=== PATIENT | male | born 1965 | race Caucasian/White ===

== ENCOUNTER 2021-12-07 10:18 | Emergency (ER) | payer BC, SELFPAY ==
[2021-12-07 10:38] VITALS: BP 147/73; PULSE 80; RESP 18; TEMP 36.4; O2SAT 98
--- NOTE | 2021-12-07 11:08 | ED.SKABFB ---
HPI - Skin/Abscess/Foreign Bdy General Chief complaint: Skin/Abscess/Foreign Body Stated complaint: wasp sting Time Seen by Provider: 12/07/21 10:59 Source: patient Mode of arrival: ambulatory Limitations: no limitations History of Present Illness HPI narrative: Patient presents today complaining of wasp sting to right lower abdomen 2 days ago. Reports the redness is getting slightly worse, but denies any pain. Reports some very mild itching. He has been applying some topical Benadryl with some relief. Related Data Allergies Allergy/AdvReac Type Severity Reaction Status Date / Time No Known Allergies Allergy Verified 12/07/21 10:45 Review of Systems Review of Systems: CONSTITUTIONAL: Denies body aches, fever, chills, or sweats. EYES: Denies visual changes, redness, or discharge. ENT: Denies rhinorrhea, congestion, sore throat, or otalgia. CARDIOVASCULAR: Denies chest pain, palpitations, or edema. RESPIRATORY: Denies cough or dyspnea. GASTROINTESTINAL: Denies abdominal pain, nausea, vomiting, or diarrhea. GENITOURINARY: Denies dysuria or hematuria. SKIN: + Wasp sting to right abdomen MUSCULOSKELETAL: Denies back pain, joint pain, or myalgia. NEUROLOGIC: Denies headache, numbness, tingling, or weakness. PSYCH: Denies depression or anxiety. [facility] Past Medical History Medical History Abnormal fasting glucose Fasting glucose 112 with hemoglobin A1c 6.0 on 11/16/2021. Acute non-recurrent maxillary sinusitis Anxiety Anxiety Benign colon polyp Benign polyp [address] Adan. BMI 34.0-34.9,adult Class 1 obesity with body mass index (BMI) of 32.0 to 32.9 in adult Encounter for wellness examination in adult Family history of malignant neoplasm of colon in relative diagnosed when younger than 50 years of age History of palpitations Insomnia Mixed hyperlipidemia Total cholesterol 186 with triglycerides 132, HDL 57 and LDL 106 on 11/16/2021. Obesity (BMI 30.0-34.9) Obstructive sleep apnea on CPAP Primary hypertension Prostate cancer screening PSA 1.64 on 11/16/2021. Protein in urine (11/19/21) trace protein on 11/16/2021. Seasonal allergic rhinitis Tobacco abuse Vitamin B12 deficiency anemia B12 normal at 787 with hemoglobin 13.9 on 11/16/2021. Surgical History Surgical History History of bilateral knee replacement History of knee replacement (~2011) Family History Family History Father Cancer Sibling Cancer Social History Social History Social History: pt smoke half pack a day Smoking status: Current some day smoker Tobacco type: cigarettes Alcohol intake: current Drinks per week: 6 Alcohol use details: beer Substance use: never Substance use type: does not use Comments At time of signature, I have reviewed and agree with nursing past medical, surgical, social and family history unless otherwise noted. Please see nursing chart for further information. There is no relevant family history pertinent to the presenting complaint Exam Narrative: GENERAL: Well-appearing, well-nourished, and in no acute distress. HEAD: Normocephalic, atraumatic. EYES: EOMI. No redness or drainage. Conjunctivae normal. ENT: Mucous membranes pink and moist. NECK: Normal AROM. CHEST: No respiratory distress. EXTREMITIES: Normal range of motion. No edema. SKIN: Warm, dry. Capillary refill normal. Normal skin turgor. 11 x 13 cm area of erythema to the right lower quadrant with area around the lower edge that is slightly edematous. 3 mm round scabbed puncture wound in the upper portion. Nontender. No induration. No fluctuance. NEURO: No focal deficits. Alert and oriented x3. Gait steady. PSYCH: Normal affect. No signs of depression or anxiety.
== END 2021-12-07 11:09 | disposition home or self-care (01) ==
PROVIDERS: Emergency Provider Nurse Practitioner; PCP Family Medicine
DX: T63.461A Toxic effect of venom of wasps, accidental (unintentional), initial encounter (principal); F17.210 Nicotine dependence, cigarettes, uncomplicated; E78.2 Mixed hyperlipidemia; G47.33 Obstructive sleep apnea (adult) (pediatric); I10 Essential (primary) hypertension; Z96.653 Presence of artificial knee joint, bilateral; E66.9 Obesity, unspecified; Z68.36 Body mass index [BMI] 36.0-36.9, adult
CPT/HCPCS: 99213; G0463

== ENCOUNTER 2022-08-13 02:48 | Day surgery (SDC) | payer BC, SELFPAY ==
[2022-08-05 16:16] VITALS: BMI 32.9
[2022-08-13 06:15] VITALS: BP 141/99; PULSE 73; RESP 18; TEMP 36.4; O2SAT 100; BMI 32.8
[2022-08-13] MEDS: LACTATED RINGERS 1,000 ML 150 ML IV CONT (06:42)
--- NOTE | 2022-08-13 07:17 | WPDANESEPPF ---
Anes - Initial Pre Proc Eval Procedure: Operation Date: 08/13/22 07:30 Proposed Procedures p Screening Colonoscopy - J Luis Adan MD Date/Time: 08/13/22 07:17 Surgeon: J Luis Adan MD Pre Op Diagnosis: Hx of colon polyps, Fam hx of colon cancer Patient Data Age: 56 Gender: M Height: 1.8 m Weight: 106.9 kg Last Vital Signs Temp 97.5 F L 08/13/22 06:15 Pulse 73 08/13/22 06:15 Resp 18 08/13/22 06:15 BP 141/99 H 08/13/22 06:15 Pulse Ox 100 08/13/22 06:15 O2 Del Method Room Air 08/13/22 06:15 Allergies Allergy/AdvReac Type Severity Reaction Status Date / Time No Known Allergies Allergy Verified 08/05/22 16:18 Home Medications Medication Instructions Recorded Confirmed Type atorvastatin 40 mg tablet 40 mg PO DAILY #90 tabs 04/20/22 08/05/22 Rx irbesartan 150 mg tablet 150 mg PO DAILY #90 tabs 04/20/22 08/05/22 Rx metoprolol succinate 50 mg 50 mg PO DAILY #90 tabs 04/20/22 08/05/22 Rx tablet,extended release 24 hr blood sugar diagnostic (True #50 ea 05/10/22 05/26/22 Rx Metrix Glucose Test Strip) blood-glucose meter (True Metrix #1 ea 05/10/22 05/26/22 Rx Glucose Meter) sodium,potassium,mag sulfates 17.5 See Rx Instructions PO .COMPLEX 07/06/22 08/05/22 Rx gram-3.13 gram-1.6 gram oral soln #354 mL (Suprep Bowel Prep Kit) Adults Multivitamin 1 tab-cap PO DAILY 08/05/22 08/05/22 History cyanocobalamin (vitamin B-12) 1,000 mcg PO DAILY 08/05/22 08/05/22 History 1,000 mcg tablet,extended release (Vitamin B-12 ER) Patient hx anesthesia problems: none Family hx anesthesia problems: none Results Review: All pre-operative results and documents have been reviewed as part of the pre-operative evaluation. [facility] Past Medical History Medical History (Updated 05/26/22 @ 13:23 by Conor Singh MD) Abnormal fasting glucose Fasting glucose 112 with hemoglobin A1c 6.0 on 11/16/2021. glucose 96 with hemoglobin A1c 6.1 on 05/07/2022. Acute bronchitis Acute non-recurrent maxillary sinusitis Anxiety Anxiety Benign colon polyp Benign polyp [address] Adan. BMI 32.0-32.9,adult BMI 34.0-34.9,adult Class 1 obesity with body mass index (BMI) of 32.0 to 32.9 in adult Encounter for wellness examination in adult Family history of malignant neoplasm of colon in relative diagnosed when younger than 50 years of age Ganglion cyst of finger of right hand (~2021) extensor surface distal phalanx right little finger 5 mm History of palpitations Insomnia Mixed hyperlipidemia Total cholesterol 186 with triglycerides 132, HDL 57 and LDL 106 on 11/16/2021. Cholesterol 191, triglycerides 107, HDL 62, LDL 110 on 05/07/2022. Obesity (BMI 30.0-34.9) Obstructive sleep apnea on CPAP Primary hypertension Prostate cancer screening PSA 1.64 on 11/16/2021. Protein in urine (11/19/21) trace protein on 11/16/2021. Seasonal allergic rhinitis Tobacco abuse Vitamin B12 deficiency anemia B12 normal at 787 with hemoglobin 13.9 on 11/16/2021. Wart Surgical History Surgical History History of bilateral knee replacement History of knee replacement (~2011) Family History Family History Father Cancer Sibling Cancer Social History Social History (Updated 05/26/22 @ 09:54 by Francie Carbajal MA) Social History: pt smoke half pack a day Smoking packs per day: 1 Smoking cigarettes per day: 20.0 Years smoked: 30 Smoking pack-years: 30.00 Smoking status: Current every day smoker Tobacco type: cigarettes Additional smoking assessment comments: CUT WAY BACK DOWN TO 7/DAY Alcohol intake: current Drinks per week: 6 Alcohol use details: BEERS Substance use: never Substance use type: does not use Lack of Transportation: No Lack of Food: Sometimes True Current Housing: I Have Housing Concerned About Future Housing
[2022-08-13 07:38] VITALS: BP 112/57; PULSE 91; RESP 16; O2SAT 96
--- NOTE | 2022-08-13 07:39 | PM.HPGS ---
History of Present Illness History of Present Illness Consent: Risks, benefits, and alternatives have been discussed and questions answered. Patient agrees to proceed with procedure. Chief complaint: Hx of colon polyps, Fam hx of colon cancer Narrative: Jacobo Estrella is a 56 year old male Presents for colonoscopy. Patient's current weight appetite and bowel movements are normal. Patient denies abdominal pain. He has had no bleeding. Family history is significant that his brother was found to have colon cancer. Patient's previous colonoscopy 2017 revealed colon polyp. Review of Systems Review of Systems: Review of systems noncontributory. [facility] Past Medical History Medical History (Updated 08/13/22 @ 07:41 by J Luis Adan MD) Abnormal fasting glucose Fasting glucose 112 with hemoglobin A1c 6.0 on 11/16/2021. glucose 96 with hemoglobin A1c 6.1 on 05/07/2022. Acute bronchitis Acute non-recurrent maxillary sinusitis Anxiety Anxiety Benign colon polyp Benign polyp [address] Adan. BMI 32.0-32.9,adult BMI 34.0-34.9,adult Class 1 obesity with body mass index (BMI) of 32.0 to 32.9 in adult Encounter for wellness examination in adult Family history of malignant neoplasm of colon in relative diagnosed when younger than 50 years of age Ganglion cyst of finger of right hand (~2021) extensor surface distal phalanx right little finger 5 mm History of palpitations Insomnia Mixed hyperlipidemia Total cholesterol 186 with triglycerides 132, HDL 57 and LDL 106 on 11/16/2021. Cholesterol 191, triglycerides 107, HDL 62, LDL 110 on 05/07/2022. Obesity (BMI 30.0-34.9) Obstructive sleep apnea on CPAP Primary hypertension Prostate cancer screening PSA 1.64 on 11/16/2021. Protein in urine (11/19/21) trace protein on 11/16/2021. Seasonal allergic rhinitis Tobacco abuse Vitamin B12 deficiency anemia B12 normal at 787 with hemoglobin 13.9 on 11/16/2021. Wart Surgical History Surgical History History of bilateral knee replacement History of knee replacement (~2011) Family History Family History Father Cancer Sibling Cancer Social History Social History (Updated 05/26/22 @ 09:54 by Francie Carbajal MA) Social History: pt smoke half pack a day Smoking packs per day: 1 Smoking cigarettes per day: 20.0 Years smoked: 30 Smoking pack-years: 30.00 Smoking status: Current every day smoker Tobacco type: cigarettes Additional smoking assessment comments: CUT WAY BACK DOWN TO 7/DAY Alcohol intake: current Drinks per week: 6 Alcohol use details: BEERS Substance use: never Substance use type: does not use Lack of Transportation: No Lack of Food: Sometimes True Current Housing: I Have Housing Concerned About Future Housing: No Difficulty Paying Gas/Electric Bills: No Difficulty Paying for Meds: No Currently Unemployed: No Education: High School Diploma/GED Difficulty w/ Childcare or Family Care: No Living arrangements: with family Spiritual care concerns: No Meds Home Medications and Allergies Home Medications Medication Instructions Recorded Confirmed Type atorvastatin 40 mg tablet 40 mg PO DAILY #90 tabs 04/20/22 08/05/22 Rx irbesartan 150 mg tablet 150 mg PO DAILY #90 tabs 04/20/22 08/05/22 Rx metoprolol succinate 50 mg 50 mg PO DAILY #90 tabs 04/20/22 08/05/22 Rx tablet,extended release 24 hr blood sugar diagnostic (True #50 ea 05/10/22 05/26/22 Rx Metrix Glucose Test Strip) blood-glucose meter (True Metrix #1 ea 05/10/22 05/26/22 Rx Glucose Meter) sodium,potassium,mag sulfates 17.5 See Rx Instructions PO .COMPLEX 07/06/22 08/05/22 Rx gram-3.13 gram-1.6 gram oral soln #354 mL (Suprep Bowel Prep Kit) Adults Multivitamin 1 tab-cap PO DAILY 08/05/22 08/05/22 History cyanocobalamin (vitamin B-12) 1,000 mcg PO DAILY
[2022-08-13 07:48] VITALS: BP 118/64; PULSE 84; RESP 14; O2SAT 97
[2022-08-13 07:58] VITALS: BP 132/79; PULSE 77; RESP 22; O2SAT 98
== END 2022-08-13 08:05 | disposition home or self-care (01) ==
PROVIDERS: PCP Family Medicine; Visit Provider Internal Medicine Gastroenterology
PROC: 0DJD8ZZ Inspection of Lower Intestinal Tract, Via Natural or Artificial Opening Endoscopic (ICD-10-PCS; CPT 45378; principal; 2022-08-13 07:30)
DX: Z12.11 Encounter for screening for malignant neoplasm of colon (principal); K64.8 Other hemorrhoids; Z86.010 Personal history of colon polyps; Z80.0 Family history of malignant neoplasm of digestive organs; E78.2 Mixed hyperlipidemia; I10 Essential (primary) hypertension; D51.9 Vitamin B12 deficiency anemia, unspecified; G47.33 Obstructive sleep apnea (adult) (pediatric); E66.9 Obesity, unspecified; Z68.32 Body mass index [BMI] 32.0-32.9, adult; F17.210 Nicotine dependence, cigarettes, uncomplicated
CPT/HCPCS: 45378; J2704; J7120

== ENCOUNTER → 2022-08-24 09:14 | Outpatient (CLI) | payer BC, SELFPAY ==
--- NOTE | ~2022-08-24 | XR_ITS ---
Cervical Spine: AP, lateral, open-mouth views Clinical History: Pain COMPARISON: 02/22/2015 Findings: The normal lordotic curve is maintained. No fracture or sublocation. There is moderate dege nerative disc narrowing at C6-C7. There is probable mild to moderate facet arthropathy at the mid cer vical spine. Pre-vertebral soft tissues are unremarkable. Impression: Overall mild to possibly moderate degenerative spondylosis, as detailed above. Reviewed, dictated and finalized at location M. Impression: Overall mild to possibly moderate degenerative spondylosis, as detailed above.
== END ==
PROVIDERS: PCP Family Medicine; Visit Provider Family Medicine
DX: M47.892 Other spondylosis, cervical region (principal)
CPT/HCPCS: 72050

== ENCOUNTER 2023-09-14 01:09 | Day surgery (SDC) | payer BC, SELFPAY ==
[2023-08-29 14:29] VITALS: BMI 34.2
--- NOTE | 2023-09-13 12:54 | WPDANESEPPF ---
Anes - Initial Pre Proc Eval Procedure: Operation Date: 09/14/23 07:30 Proposed Procedures p Esophagogastroduodenoscopy - Jacobo Grimm MD Date/Time: 09/13/23 12:54 Surgeon: Jacobo Grimm MD Pre Op Diagnosis: Anemia Patient Data Age: 57 Gender: M Height: 1.8 m Weight: 111.5 kg Allergies Allergy/AdvReac Type Severity Reaction Status Date / Time No Known Allergies Allergy Verified 09/14/23 06:20 Home Medications Medication Instructions Recorded Confirmed Type blood-glucose meter (True Metrix #1 ea 05/10/22 07/04/23 Rx Glucose Meter) Adults Multivitamin 1 tab-cap PO DAILY 08/05/22 08/29/23 History cyanocobalamin (vitamin B-12) 1,000 mcg PO DAILY 08/05/22 08/29/23 History 1,000 mcg tablet,extended release (Vitamin B-12 ER) atorvastatin 40 mg tablet 40 mg PO DAILY #90 tabs 04/20/23 08/29/23 Rx irbesartan 150 mg tablet 150 mg PO DAILY #90 tabs 04/20/23 08/29/23 Rx metoprolol succinate 50 mg 50 mg PO DAILY #90 tabs 04/20/23 09/14/23 Rx tablet,extended release 24 hr blood sugar diagnostic (True #50 ea 08/10/23 Rx Metrix Glucose Test Strip) Patient hx anesthesia problems: none Family hx anesthesia problems: none Results Review: All pre-operative results and documents have been reviewed as part of the pre-operative evaluation. [facility] Past Medical History Medical History (Updated 08/29/23 @ 08:13 by Gila Wray MD) Abnormal fasting glucose Fasting glucose 112 with hemoglobin A1c 6.0 on 11/16/2021. glucose 96 with hemoglobin A1c 6.1 on 05/07/2022. Glucose 95 with hemoglobin A1c 6.0 on 01/07/2023. Acute bronchitis Acute non-recurrent maxillary sinusitis Anemia (01/07/23) hemoglobin 12.9 on 01/07/2023. Hemoglobin 12.6 with iron 113 with 31% saturation and ferritin 269 on 06/24/2023. Anxiety Benign colon polyp Benign polyp [address] Adan. Normal colonoscopy 08/13/2022 with recheck in 5 years. BMI 32.0-32.9,adult BMI 33.0-33.9,adult BMI 34.0-34.9,adult Chronic depression Chronic neck pain (~05/2022) chronic neck pain with left cervical radiculitis. X-ray of the cervical spine on 08/24/2022 reveals degenerative disc disease at C6-C7 with mild to moderate facet arthropathy at multiple levels. Class 1 obesity with body mass index (BMI) of 32.0 to 32.9 in adult Encounter for wellness examination in adult Family history of malignant neoplasm of colon in relative diagnosed when younger than 50 years of age Ganglion cyst of finger of right hand (~2021) extensor surface distal phalanx right little finger 5 mm History of colon polyps History of palpitations Insomnia Lateral epicondylitis of right elbow (~11/2022) Mixed hyperlipidemia Total cholesterol 186 with triglycerides 132, HDL 57 and LDL 106 on 11/16/2021. Cholesterol 191, triglycerides 107, HDL 62, LDL 110 on 05/07/2022. Cholesterol 188, triglycerides 136, HDL 66, LDL 98 on 01/07/2023. Obesity (BMI 30.0-34.9) Obstructive sleep apnea on CPAP JENNIFER starting 2016 treated with CPAP at 13 cm of water pressure with nasal pillows. Paresthesia of both hands (~2021) Primary hypertension Prostate cancer screening PSA 1.64 on 11/16/2021. PSA 1.7 on 01/07/2023. Protein in urine (11/19/21) trace protein on 11/16/2021. Urinalysis normal on 01/07/2023. Seasonal allergic rhinitis Tobacco abuse Patient quit smoking 2022. Vitamin B12 deficiency anemia B12 normal at 787 with hemoglobin 13.9 on 11/16/2021. Normal at 757 with folic acid 20 and hemoglobin 12.9 on 01/07/2023. Wart Surgical History Surgical History History of bilateral knee replacement History of knee replacement (~2011) Family History Family History Father Cancer Sibling Cancer Social History Social History (Updated 08/29/23 @ 07:59 by Jia Newell MA) Social History: pt smoke
[2023-09-14 06:21] VITALS: BP 141/88; PULSE 70; RESP 18; TEMP 36.4; O2SAT 99
[2023-09-14] MEDS: LACTATED RINGERS 1,000 ML 150 ML IV CONT (06:33)
--- NOTE | 2023-09-14 07:29 | PM.HPGS ---
History of Present Illness History of Present Illness Consent: Risks, benefits, and alternatives have been discussed and questions answered. Patient agrees to proceed with procedure. Chief complaint: Anemia Narrative: Jacobo Estrella is a 57 year old male with anemia, no overt gib, had colonoscopy last year Review of Systems Review of Systems: All systems reviewed & are unremarkable except as noted in HPI and below PMFSH Past Medical History Medical History (Updated 08/29/23 @ 08:13 by Gila Wray MD) Abnormal fasting glucose Fasting glucose 112 with hemoglobin A1c 6.0 on 11/16/2021. glucose 96 with hemoglobin A1c 6.1 on 05/07/2022. Glucose 95 with hemoglobin A1c 6.0 on 01/07/2023. Acute bronchitis Acute non-recurrent maxillary sinusitis Anemia (01/07/23) hemoglobin 12.9 on 01/07/2023. Hemoglobin 12.6 with iron 113 with 31% saturation and ferritin 269 on 06/24/2023. Anxiety Benign colon polyp Benign polyp [address] Adan. Normal colonoscopy 08/13/2022 with recheck in 5 years. BMI 32.0-32.9,adult BMI 33.0-33.9,adult BMI 34.0-34.9,adult Chronic depression Chronic neck pain (~05/2022) chronic neck pain with left cervical radiculitis. X-ray of the cervical spine on 08/24/2022 reveals degenerative disc disease at C6-C7 with mild to moderate facet arthropathy at multiple levels. Class 1 obesity with body mass index (BMI) of 32.0 to 32.9 in adult Encounter for wellness examination in adult Family history of malignant neoplasm of colon in relative diagnosed when younger than 50 years of age Ganglion cyst of finger of right hand (~2021) extensor surface distal phalanx right little finger 5 mm History of colon polyps History of palpitations Insomnia Lateral epicondylitis of right elbow (~11/2022) Mixed hyperlipidemia Total cholesterol 186 with triglycerides 132, HDL 57 and LDL 106 on 11/16/2021. Cholesterol 191, triglycerides 107, HDL 62, LDL 110 on 05/07/2022. Cholesterol 188, triglycerides 136, HDL 66, LDL 98 on 01/07/2023. Obesity (BMI 30.0-34.9) Obstructive sleep apnea on CPAP JENNIFER starting 2016 treated with CPAP at 13 cm of water pressure with nasal pillows. Paresthesia of both hands (~2021) Primary hypertension Prostate cancer screening PSA 1.64 on 11/16/2021. PSA 1.7 on 01/07/2023. Protein in urine (11/19/21) trace protein on 11/16/2021. Urinalysis normal on 01/07/2023. Seasonal allergic rhinitis Tobacco abuse Patient quit smoking 2022. Vitamin B12 deficiency anemia B12 normal at 787 with hemoglobin 13.9 on 11/16/2021. Normal at 757 with folic acid 20 and hemoglobin 12.9 on 01/07/2023. Wart Surgical History Surgical History History of bilateral knee replacement History of knee replacement (~2011) Family History Family History Father Cancer Sibling Cancer Social History Social History (Updated 08/29/23 @ 07:59 by Jia Newell MA) Social History: pt smoke half pack a day Smoking packs per day: 1 Smoking cigarettes per day: 20.0 Years smoked: 35 Smoking pack-years: 35.00 Smoking status: Current some day smoker ( quit smoking 2022.) Tobacco type: cigarettes Additional smoking assessment comments: CUT WAY BACK DOWN TO 7/DAY......Quit in the spring Alcohol intake: current Drinks per week: 1 Alcohol use details: BEERS Substance use: never Substance use type: does not use Lack of Transportation: No Lack of Food: Sometimes True Current Housing: I Have Housing Concerned About Future Housing: No Difficulty Paying Gas/Electric Bills: No Difficulty Paying for Meds: No Currently Unemployed: No Education: High School Diploma/GED Difficulty w/ Childcare or Family Care: No Living arrangements: with family Spiritual care concerns: No Meds Home Medications and Allergies Home Medications
[2023-09-14 07:41] VITALS: BP 127/81; PULSE 71; RESP 25; O2SAT 97
[2023-09-14 07:51] VITALS: BP 130/85; PULSE 69; RESP 19; O2SAT 97
[2023-09-14 08:01] VITALS: BP 146/80; PULSE 68; RESP 20; O2SAT 98
== END 2023-09-14 08:03 | disposition home or self-care (01) ==
PROVIDERS: PCP Family Medicine; Visit Provider Internal Medicine Gastroenterology
PROC: 0DJ08ZZ Inspection of Upper Intestinal Tract, Via Natural or Artificial Opening Endoscopic (ICD-10-PCS; CPT 43235; principal; 2023-09-14 07:30)
DX: K29.50 Unspecified chronic gastritis without bleeding (principal); B96.81 Helicobacter pylori [H. pylori] as the cause of diseases classified elsewhere; D51.3 Other dietary vitamin B12 deficiency anemia; E78.2 Mixed hyperlipidemia; G47.33 Obstructive sleep apnea (adult) (pediatric); I10 Essential (primary) hypertension; Z87.891 Personal history of nicotine dependence; E66.9 Obesity, unspecified; Z68.35 Body mass index [BMI] 35.0-35.9, adult
CPT/HCPCS: 43239; 88305; 88342; J2704; J7120

== ENCOUNTER 2024-03-02 08:14 | Outpatient (CLI) | payer OTHER, SELFPAY ==
[2024-03-05 12:33] LABS: H pylori Ag Stool RESULT: Not Detected
== END 2024-03-02 08:15 | disposition home or self-care (01) ==
LOC: ANHLAB 08:15
PROVIDERS: PCP Family Medicine; Visit Provider Internal Medicine Gastroenterology
DX: K29.70 Gastritis, unspecified, without bleeding (principal); B96.81 Helicobacter pylori [H. pylori] as the cause of diseases classified elsewhere
CPT/HCPCS: 87338